=== PATIENT | female | born 1995 | race Caucasian/White ===

== ENCOUNTER 2024-12-17 21:12 | Emergency (ER) | payer OTHER, SELFPAY ==
[2024-12-17 21:15] VITALS: BP 183/103
--- NOTE | 2024-12-17 21:29 | ED.GENMED ---
History of Present Illness
General
Chief Complaint: Back Pain
Source: patient
Exam Limitations: none
Time Seen by Provider: 12/17/24 21:22
History of Present Illness
History of Present Illness:
29-year-old female presents complaining of lower back and right sided pelvic pain after a fall she sustained down 4 wooden steps. It does not hurt to breathe. She denies any urinary symptoms. No abdominal pain. Occasionally pain radiates down
the lateral right hip. No other complaints at this time
Phy Exam
Physical Exam
Physical Exam:
General: Uncomfortable appearing female no acute respiratory distress
HEENT: Normocephalic atraumatic
Heart: Regular rate and rhythm no murmurs
Lungs: Clear no wheeze
Musculoskeletal exam: Patient is tender over the right side lumbosacral junction in the posterior right pelvis. She is nontender over thoracic spine or ribs. No costovertebral angle tenderness
Extremities: No cyanosis
Course
Orders/Labs/Results
Orders:
Orders
12/17/24 21:28
CR Lumbar Spine 2 Or 3 Views Urgent
Comment:
Reason For Exam: fall
CR Pelvis - 1 Or 2 Views Urgent
Comment:
Reason For Exam: fall
CR Sacrum/coccyx Min 2 View Urgent
Comment:
Reason For Exam: fall
12/17/24 21:30
Diazepam [Valium] 5 mg PO NOW STA
Ketorolac [Toradol] 30 mg IM NOW STA
12/18/24 00:19
Oxycodone/Acetaminophen [Percocet 5/325] 1 tablet PO NOW STA
Vital Signs
Initial and Last Documented VS:
Initial Vital Signs
Temp Pulse Resp BP Pulse Ox
98.5 F 77 16 183/103 100
12/17/24 21:15 12/17/24 21:15 12/17/24 21:15 12/17/24 21:15 12/17/24 21:15
Last Documented Vital Signs
Temp Pulse Resp BP Pulse Ox
98.5 F 74 16 154/87 99
12/17/24 21:15 12/17/24 22:01 12/17/24 22:01 12/17/24 22:01 12/17/24 22:01
MDM/Problems Addressed
Differential Diagnosis Includes:
Lower back pain after a fall. Consider fracture versus contusion versus strain
X-rays lumbar spine pelvis and sacrum pending
Toradol and Valium ordered
*Critical Care Note
Total Time (30-74mins, 75-104mins- exclusive of procedures): Not Applicable
Update Note
Update Note:
X-rays negative for acute fracture. Will discharge home with symptomatic treatment.
ED Attending Note
-
Portions of this chart may have been created with voice recognition software.� Occasional wrong word or��sound alike� substitutions may have occurred due to the inherent limitations of voice recognition software.
Discharge Plan
Departure
Patient Disposition: Home (Routine Discharge)
Date of Disposition: 12/18/24
Time of Disposition: 00:31
Patient with high blood pressure during this ER visit?: No
Discharge Problem:
Lumbar strain
Instructions: Low Back Pain (DC)
Prescriptions:
New
methocarbamol 500 mg tablet
500 mg PO TID PRN (Reason: spasm) Qty: 10 0RF
oxycodone-acetaminophen [Percocet] 5-325 mg tablet
1 tab PO Q6HPRN PRN (Reason: pain) Qty: 10 0RF
Referrals:
NONE,* [Family Provider] -
Stand Alone Forms: Return to Work
Activity Restrictions/Additional Instructions:
Use Tylenol or ibuprofen for mild or moderate pain. You may also use Lidoderm patches. You may use muscle relaxer or prescribed pain medicine if needed for severe pain. Return if worse. Follow-up with your doctor otherwise
Interventions
Interventions:
*Risk Screen - Suicide Last Done: 12/17/24 22:01
*General Assessment Last Done: 12/17/24 21:15
*Neglect/Abuse Screening Last Done: 12/17/24 22:01
ED- Fall Risk Assessment Last Done: 12/17/24 22:01
*ED COVID-19 Vaccine History Last Done: 12/17/24 21:15
ED-Musculoskeletal Assessment Last Done: 12/17/24 22:01
Discharge Date and Time
Print Language: ITALIAN
[2024-12-17] MEDS: VALIUM 5 MG PO (21:54)
[2024-12-17] MEDS: TORADOL 30 MG IM (21:54)
[2024-12-17 22:01] VITALS: BP 154/87
[2024-12-18] MEDS: PERCOCET 5/325 1 TABLET PO (00:28)
[2024-12-18 00:53] VITALS: BP 161/74
== END 2024-12-18 00:55 | disposition home or self-care (01) ==
LOC: EMR 21:12
PROVIDERS: EMERGENCY PHYSICIAN Emergency Medicine
DX: S39.012A Strain of muscle, fascia and tendon of lower back, initial encounter (principal); R10.2 Pelvic and perineal pain; M25.551 Pain in right hip; W10.9XXA Fall (on) (from) unspecified stairs and steps, initial encounter
CPT/HCPCS: 99284; 96372; 72100; 72170; 72220